=== PATIENT | male | born 1935 | race Caucasian/White ===

== ENCOUNTER 2018-05-30 15:31 | Inpatient (IN) | payer MEDICARE ==
[~2018-05-30] VITALS: Ht 180.3 cm; Wt 79.6 kg
[~2018-05-30 15:31] MED LIST: ACET325T14 PO; ALBUTEROL INH; ATOR40TA78 PO; GABA300C10 PO; GUAI400T66 PO; MELO15TA24 PO; MULT-658 PO; OMEP-110 PO; OXYC-302 PO; PRAM0.12 PO; TAMS0.4C2 PO; VERA240C2 PO
[2018-05-30] MEDS ORDERED: GABA300C10 PO (16:20)
[2018-05-30] MEDS ORDERED: ASPI-515 PO (16:20)
[2018-05-30] MEDS ORDERED: PRAM0.25 PO (16:20)
[2018-05-30] MEDS ORDERED: CARV12.543 PO (16:20)
[2018-05-30] MEDS ORDERED: TRAM50TA2 PO (16:20)
[2018-05-30] MEDS ORDERED: CILO50TA PO (16:20)
[2018-05-30 16:44] LABS: ALBUMIN 2.9 g/dL (3.4-5.0); ANION GAP 7 mmol/L (5-15); CALCIUM 8.3 mg/dL (8.5-10.1); CHLORIDE 109 mmol/L (98-107); CREATININE 2.44 mg/dL (0.7-1.3)
[2018-05-30 16:49] LABS: HCT (SEDRATE) 32.1 % (39.2-51.8)
[2018-05-30 16:50] LABS: BASOPHILS # (AUTO) 0.02 x10^3/uL (0-0.1); BASOPHILS % (AUTO) 0 % (0-1); EOSINOPHILS # (AUTO) 0.41 x10^3/uL (0-0.4); EOSINOPHILS % (AUTO) 4 % (1-7); LYMPHOCYTES # (AUTO) 1.11 x10^3/uL (1-3.4); LYMPHOCYTES % (AUTO) 9 % (22-44); MD NO; MEAN CORPUSCULAR HEMOGLOBIN 30.7 pg (27.5-34.5); MEAN CORPUSCULAR HGB CONC 32.6 g/dL (33.2-36.2); MEAN CORPUSCULAR VOLUME 94.3 fL (81-97); MEAN PLATELET VOLUME 6.3 fL (7.4-10.4); MONOCYTES # (AUTO) 0.72 x10^3/uL (0.2-0.8); MONOCYTES % (AUTO) 6 % (2-9); NEUTROPHILS # (AUTO) 9.58 x10^3/uL (1.8-6.8); NEUTROPHILS % (AUTO) 81 % (42-75); PLATELET COUNT 383 x10^3/uL (130-400); RED BLOOD COUNT 3.45 x10^6/uL (4.38-5.82); RED CELL DISTRIBUTION WIDTH 15.3 % (9.4-14.8)
[2018-05-30] MEDS ORDERED: SODIUM CHLORIDE FLUSH 10ML SYR IVF PRN (17:30)
[2018-05-30] MEDS ORDERED: ONDANSETRON 2MG/ML, 2ML IVPush PRN (18:30)
[2018-05-30] MEDS ORDERED: hydrALAzine 20 MG/ML, 1ML IVPush PRN (18:30)
[2018-05-30] MEDS ORDERED: ACETAMINOPHEN 325 MG TABLET PO PRN (18:30)
[2018-05-30] MEDS ORDERED: BISACODYL 10 MG SUPP PR PRN (18:30)
[2018-05-30] MEDS ORDERED: CEFTRIAXONE PMX 1GM/50ML 50 ML IV SCH (18:30)
[2018-05-30] MEDS ORDERED: POLYETHYLENE GLYCOL 17 GM PACKET PO PRN (18:30)
[2018-05-30] MEDS ORDERED: TEMPLATE NON-FORMULARY MED. (Tramadol Hcl** 50 MG) PO SCH (18:30)
[2018-05-30] MEDS ORDERED: DOCUSATE 100 MG CAPSULE PO PRN (18:30)
[2018-05-30 18:38] LABS: INTERNATIONAL NORMALIZED RATIO 1.1 (0.93-1.1); PROTHROMBIN TIME 11.4 Seconds (9.6-11.5)
[2018-05-30] MEDS: CEFTRIAXONE 1,000 MG in SODIUM CHLORIDE 0.9% 50 ML IV SCH (19:00)
[2018-05-30] MEDS: SODIUM CHLORIDE 0.9% 1,000 ML IV SCH (19:18)
[2018-05-30] MEDS: DOXYCYCLINE 100 MG in DEXTROSE 5% 250 ML IV SCH (19:36)
[2018-05-30 20:13] LABS: CREATININE,URINE RANDOM 92.9 mg/dL
[2018-05-30 20:59] VITALS: BP 118/70
[2018-05-30] MEDS: CILOSTAZOL 100 MG TABLET PO SCH (22:00)
[2018-05-30] MEDS: GUAIFENESIN ER 600 MG TABLET PO SCH (22:01)
[2018-05-30] MEDS: GABAPENTIN 300 MG CAPSULE PO SCH (22:01)
[2018-05-30] MEDS: ATORVASTATIN 40 MG TABLET PO SCH (22:01)
[2018-05-30] MEDS: TAMSULOSIN 0.4 MG CAP.ER.24H PO SCH (22:02)
[2018-05-30] MEDS: CARVEDILOL 12.5 MG TABLET PO SCH (22:02)
[2018-05-31 01:04] VITALS: BP 134/71
[2018-05-31 05:42] LABS: CHLORIDE 110 mmol/L (98-107)
[2018-05-31 05:44] LABS: BASOPHILS # (AUTO) 0.04 x10^3/uL (0-0.1); BASOPHILS % (AUTO) 0 % (0-1); EOSINOPHILS # (AUTO) 0.23 x10^3/uL (0-0.4); EOSINOPHILS % (AUTO) 2 % (1-7); LYMPHOCYTES # (AUTO) 0.93 x10^3/uL (1-3.4); LYMPHOCYTES % (AUTO) 8 % (22-44); MD NO; MEAN CORPUSCULAR HEMOGLOBIN 31.3 pg (27.5-34.5); MEAN CORPUSCULAR HGB CONC 33.5 g/dL (33.2-36.2); MEAN CORPUSCULAR VOLUME 93.5 fL (81-97); MEAN PLATELET VOLUME 6.4 fL (7.4-10.4); MONOCYTES # (AUTO) 0.87 x10^3/uL (0.2-0.8); MONOCYTES % (AUTO) 7 % (2-9); NEUTROPHILS # (AUTO) 10.08 x10^3/uL (1.8-6.8); NEUTROPHILS % (AUTO) 83 % (42-75); PLATELET COUNT 364 x10^3/uL (130-400); RED BLOOD COUNT 3.13 x10^6/uL (4.38-5.82); RED CELL DISTRIBUTION WIDTH 15.1 % (9.4-14.8)
[2018-05-31 05:59] LABS: ALANINE AMINOTRANSFERASE 14 U/L (12-78); ALBUMIN 2.4 g/dL (3.4-5.0); ALKALINE PHOSPHATASE 83 U/L (45-117); ANION GAP 8 mmol/L (5-15); BILIRUBIN,TOTAL 0.3 mg/dL (0.2-1.0); CREATININE 1.82 mg/dL (0.7-1.3); TOTAL PROTEIN 6.1 g/dL (6.4-8.2)
[2018-05-31] MEDS: SODIUM CHLORIDE 0.9% 1,000 ML IV SCH (06:06)
[2018-05-31] MEDS: DOXYCYCLINE 100 MG in DEXTROSE 5% 250 ML IV SCH ×2 (06:08→18:41)
[2018-05-31 06:40] VITALS: BP 118/68
[2018-05-31] MEDS: VERAPAMIL ER 240MG TABLET.ER PO SCH (09:53)
[2018-05-31] MEDS: TAMSULOSIN 0.4 MG CAP.ER.24H PO SCH ×2 (09:54→20:12)
[2018-05-31] MEDS: CARVEDILOL 12.5 MG TABLET PO SCH ×2 (09:54→20:12)
[2018-05-31] MEDS: GABAPENTIN 300 MG CAPSULE PO SCH ×2 (09:54→20:11)
[2018-05-31] MEDS: GUAIFENESIN ER 600 MG TABLET PO SCH ×2 (09:54→20:11)
[2018-05-31] MEDS: CILOSTAZOL 100 MG TABLET PO SCH ×2 (09:54→20:12)
[2018-05-31 12:00] VITALS: BP 132/70
[2018-05-31 19:03] VITALS: BP 101/60
[2018-05-31] MEDS: CEFTRIAXONE 1,000 MG in SODIUM CHLORIDE 0.9% 50 ML IV SCH (20:10)
[2018-05-31] MEDS: ATORVASTATIN 40 MG TABLET PO SCH (20:12)
[2018-05-31 22:07] LABS: MICROSCOPIC AUTO
[2018-05-31 22:08] LABS: CULTURE INDICATED? NO
[2018-06-01 00:43] VITALS: BP 127/59
[2018-06-01 04:49] LABS: BASOPHILS # (AUTO) 0.04 x10^3/uL (0-0.1); BASOPHILS % (AUTO) 0 % (0-1); EOSINOPHILS # (AUTO) 0.33 x10^3/uL (0-0.4); EOSINOPHILS % (AUTO) 3 % (1-7); LYMPHOCYTES % (AUTO) 16 % (22-44); MD NO; MEAN CORPUSCULAR HEMOGLOBIN 31.4 pg (27.5-34.5); MEAN CORPUSCULAR HGB CONC 33.3 g/dL (33.2-36.2); MEAN CORPUSCULAR VOLUME 94.1 fL (81-97); MEAN PLATELET VOLUME 6.2 fL (7.4-10.4); MONOCYTES # (AUTO) 0.79 x10^3/uL (0.2-0.8); MONOCYTES % (AUTO) 8 % (2-9); NEUTROPHILS # (AUTO) 7.51 x10^3/uL (1.8-6.8); NEUTROPHILS % (AUTO) 73 % (42-75); PLATELET COUNT 402 x10^3/uL (130-400); RED BLOOD COUNT 3.25 x10^6/uL (4.38-5.82); RED CELL DISTRIBUTION WIDTH 15.5 % (9.4-14.8)
[2018-06-01 04:59] LABS: ANION GAP 7 mmol/L (5-15); CALCIUM 8.3 mg/dL (8.5-10.1); CHLORIDE 115 mmol/L (98-107); CREATININE 1.27 mg/dL (0.7-1.3)
[2018-06-01] MEDS: DOXYCYCLINE 100 MG in DEXTROSE 5% 250 ML IV SCH (05:52)
[2018-06-01] MEDS ORDERED: ASPIRIN 81 MG TABLET EC PO SCH (06:00)
[2018-06-01 06:50] VITALS: BP 164/76
[2018-06-01] MEDS: CILOSTAZOL 100 MG TABLET PO SCH (07:39)
[2018-06-01] MEDS: TAMSULOSIN 0.4 MG CAP.ER.24H PO SCH (07:39)
[2018-06-01] MEDS: VERAPAMIL ER 240MG TABLET.ER PO SCH (07:39)
[2018-06-01] MEDS: GUAIFENESIN ER 600 MG TABLET PO SCH (07:39)
[2018-06-01] MEDS: GABAPENTIN 300 MG CAPSULE PO SCH (07:39)
[2018-06-01] MEDS: CARVEDILOL 12.5 MG TABLET PO SCH (07:40)
[2018-06-01 13:22] VITALS: BP 128/80
[2018-06-01] MEDS ORDERED: DOXY100T PO (14:40)
== END 2018-06-01 16:05 | disposition home or self-care (01) | DRG 683 ==
LOC: ED 17:49 → EDIP 17:50 → 3NE 18:28 → DCLOUNGE 06-01 15:59
PROVIDERS: ADMIT Internal Medicine; ATTEND Internal Medicine
DX: N17.0 Acute kidney failure with tubular necrosis (principal); E44.0 Moderate protein-calorie malnutrition; D68.69 Other thrombophilia; I13.0 Hypertensive heart and chronic kidney disease with heart failure and stage 1 through stage 4 chronic kidney disease, or unspecified chronic kidney disease; I50.32 Chronic diastolic (congestive) heart failure; J98.11 Atelectasis; W18.30XA Fall on same level, unspecified, initial encounter; D64.9 Anemia, unspecified; E78.5 Hyperlipidemia, unspecified; I48.91 Unspecified atrial fibrillation; J20.9 Acute bronchitis, unspecified; N18.9 Chronic kidney disease, unspecified; I73.9 Peripheral vascular disease, unspecified; G62.9 Polyneuropathy, unspecified; Z68.24 Body mass index [BMI] 24.0-24.9, adult; R19.7 Diarrhea, unspecified; Y93.89 Activity, other specified; Y92.89 Other specified places as the place of occurrence of the external cause; Y99.2 Volunteer activity; Z80.1 Family history of malignant neoplasm of trachea, bronchus and lung; Z87.891 Personal history of nicotine dependence; Z95.0 Presence of cardiac pacemaker
CPT/HCPCS: 36415; 76770; 80048; 80053; 81001; 82040; 82436; 82570; 83605; 84133; 84300; 85025; 85610; 85651; 86140; 87040; 87070; 87077; 87186; 87205; 93005; 93306; J7060; J7030